=== PATIENT | male | born 1980 | race African-American/Black ===

== ENCOUNTER 2019-03-13 06:28 | Emergency (ER) | payer BC ==
[~2019-03-13] VITALS: Ht 182.9 cm; Wt 113.0 kg
[2019-03-13] MEDS ORDERED: BACITRACIN ZINC OINT UDPKT TOP ONE (07:15)
[2019-03-13] MEDS ORDERED: ACETAMINOPHEN 500MG TABLET PO ONE (07:15)
[2019-03-13] MEDS ORDERED: LIDOCAINE HCL/PF 1% 10 MG/ML 5ML VIAL IJ ONE (07:15)
[2019-03-13 09:50] VITALS: BP 136/88
== END 2019-03-13 09:50 | disposition home or self-care (01) ==
LOC: EDSEX 06:28 → ER 06:28
DX: S01.112A Laceration without foreign body of left eyelid and periocular area, initial encounter (principal); M54.89 Other dorsalgia; R07.89 Other chest pain; V43.52XA Car driver injured in collision with other type car in traffic accident, initial encounter; Y93.89 Activity, other specified; Y92.414 Local residential or business street as the place of occurrence of the external cause
CPT/HCPCS: 12013; 70486; 71045; 99284; J3490